=== PATIENT | female | born 1975 | race Caucasian/White ===

== ENCOUNTER 2017-06-23 23:28 | Emergency (ER) | payer OTHER ==
[~2017-06-23] VITALS: Ht 157.5 cm; Wt 55.0 kg
[2017-06-23 23:38] VITALS: Ht 157.5 cm; Wt 55.0 kg
--- NOTE | 2017-06-23 23:50 | ERD ---
ER Documentation Chief Complaint Chief Complaint told she took 8 tabs benadryl, now denies; states took 1 only tab HPI . The patient is a 42-year-old female, presenting to the ER because she told her hospital stay took 8 tablets of Benadryl because he was upset when she found out that her was cheating on her. She now told me that she only took one Benadryl to go to sleep and 1 shot of alcoholic beverages. She denies suicidal/homicidal ideation, visual/auditory hallucination. He denies headache , neck pain, chest pain, dyspnea, abdominal pain, vomiting, dysuria. She smokes , drinks, denies illicit drug Past medical history: None Past surgical history: Laparotomy for endometriosis ROS All systems reviewed and are negative except as per history of present illness. Medications Home Meds Reported Medications [id number] ( 19) 1 Each Tablet, 1 TAB PO DAILY, TAB 06/24/17 Allergies Allergies: Coded Allergies: bee venom protein (honey bee) (Verified Allergy, Severe, 06/23/17) Physical Exam Vitals Vital Signs Date Time Temp Pulse Resp B/P Pulse Ox O2 Delivery O2 Flow Rate FiO2 06/23/17 23:38 98.9 91 18 126/80 98 Physical Exam Const: No acute distress. Head: Atraumatic. Eyes: Normal Conjunctiva. ENT: Normal External Ears, Nose and Mouth. Neck: Full range of motion. No meningismus. Resp: Clear to auscultation bilaterally. Cardio: Regular rate and rhythm. Abd: Soft, non distended, normal bowel sounds, non tender. Skin: No petechiae or rashes. Back: No midline or flank tenderness. Ext: No cyanosis, or edema. Neur: Awake and alert. No focal deficit Psych: Depressed and anxious Result Diagram: 06/24/17 0004 06/24/17 0004 Results 24 hrs Laboratory Tests Test 06/23/17 23:50 06/24/17 00:04 Urine Color YELLOW Urine Clarity CLEAR Urine pH 5.0 Urine Specific [place] 1.011 Urine Ketones NEGATIVEmg/dL Urine Nitrite NEGATIVEmg/dL Urine Bilirubin NEGATIVEmg/dL Urine Urobilinogen NEGATIVEmg/dL Urine Leukocyte Esterase NEGATIVELeu/ul Urine Microscopic RBC 9/HPF Urine Microscopic WBC 5/HPF Urine Squamous Epithelial Cells FEW/HPF Urine Hemoglobin 1+mg/dL Urine Glucose NEGATIVEmg/dL Urine Total Protein NEGATIVEmg/dl Urine Opiates Screen Negative Urine Barbiturates Negative Urine Amphetamines Screen Negative Urine Benzodiazepines Screen Negative Urine Cocaine Screen Negative Urine Cannabinoids Positive White Blood Count 10.810^3/ul Red Blood Count 4.5710^6/ul Hemoglobin 14.1g/dl Hematocrit 40.8% Mean Corpuscular Volume 89.3fl Mean Corpuscular Hemoglobin 30.9pg Mean Corpuscular Hemoglobin Concent 34.6g/dl Red Cell Distribution Width 12.2% Platelet Count 21774^3/UL Mean Platelet Volume 9.9fl Neutrophils % 61.4% Lymphocytes % 33.4% Monocytes % 3.7% Eosinophils % 0.6% Basophils % 0.6% Nucleated Red Blood Cells % 0.0/100WBC Neutrophils # 6.610^3/ul Lymphocytes # 3.610^3/ul Monocytes # 0.410^3/ul Eosinophils # 0.110^3/ul Basophils # 0.110^3/ul Nucleated Red Blood Cells # 0.010^3/ul Sodium Level 143mmol/L Potassium Level 3.5mmol/L Chloride Level 111mmol/L Carbon Dioxide Level 19mmol/L Anion Gap 17 Blood Urea Nitrogen 10mg/dl Creatinine 0.63mg/dl Glucose Level 98mg/dl Calcium Level 8.8mg/dl Total Bilirubin 0.1mg/dl Direct Bilirubin 0.00mg/dl Indirect Bilirubin 0.1mg/dl Aspartate Amino Transf (AST/SGOT) 19IU/L Alanine Aminotransferase (ALT/SGPT) 32IU/L Alkaline Phosphatase 79IU/L Total Protein 7.5g/dl Albumin 4.9g/dl Globulin 2.60g/dl Albumin/Globulin Ratio 1.88 Salicylates Level < 1.0mg/dl Acetaminophen Level < 10.0ug/ml Ethyl Alcohol Level 101.0mg/dl [facility] MEDICAL MAKING DECISION: The patient is a 42-year-old female, presenting to the ER because of questionable suicidal ideation, alcohol abuse. The differential diagnoses considered include but are not limited to acute stress, depression, anxiety, psychoosis, drug-induced psychosis Consultation: She was evaluated by telepsychiatrist who put a 5150 hold Departure Diagnosis: Primary Impression: Intentional drug overdose Additional Impressions: Acute alcohol abuse Marijuana abuse Condition: Stable Comments I discussed the findings with the patient. I discussed the patient with the on- call telepsychiatrist who put her on 5150 hold at 1:35 AM The patient's blood pressure was elevated (>120/80) but appears stable without evidence of hypertension emergency or urgency. The patient was counseled about the risks of hypertension and urged to pursue outpatient monitoring and therapy within a week with their primary care physician. Disclaimer: Inadvertent spelling and grammatical errors are likely due to EHR/ dictation software use and do not reflect on the overall quality of patient care. Also, please note that the electronic time recorded on this note does not necessarily reflect the actual time of the patient encounter. BETHEL MCCLAIN MD Jun 23, 2017 23:50
[2017-06-24 00:17] LABS: BASOPHIL # 0.1 10^3/ul (0.0-0.1); BASOPHILS % 0.6 % (0.0-2.0); EOSINOPHILS # 0.1 10^3/ul (0.0-0.5); EOSINOPHILS % 0.6 % (0.0-7.0); HEMATOCRIT 40.8 % (37.0-47.0); HEMOGLOBIN 14.1 g/dl (12.0-16.0); LYMPHOCYTES # 3.6 10^3/ul (0.8-2.9); LYMPHOCYTES % 33.4 % (15.0-51.0); MEAN CORPUSCULAR HEMOGLOBIN 30.9 pg (29.0-33.0); MEAN CORPUSCULAR HGB CONC 34.6 g/dl (32.0-37.0); MEAN CORPUSCULAR VOLUME 89.3 fl (82.0-101.0); MEAN PLATELET VOLUME 9.9 fl (7.4-10.4); MONOCYTE # 0.4 10^3/ul (0.3-0.9); MONOCYTES % 3.7 % (0.0-11.0); NEUTROPHIL # 6.6 10^3/ul (1.6-7.5); NEUTROPHILS % 61.4 % (39.0-77.0); PLATELET COUNT 299 10^3/UL (140-415); RED BLOOD COUNT 4.57 10^6/ul (4.20-5.40); RED CELL DISTRIBUTION WIDTH 12.2 % (11.5-14.5); WHITE BLOOD COUNT 10.8 10^3/ul (4.8-10.8)
[2017-06-24 00:22] LABS: ADD UMIC YES; UR ASCORBIC ACID NEGATIVE (NEGATIVE); UR BILIRUBIN (Dip) NEGATIVE (NEGATIVE); UR BLOOD (Dip) 1+ mg/dL (NEGATIVE); UR CLARITY CLEAR (CLEAR); UR COLOR YELLOW (YELLOW); UR GLUCOSE (Dip) NEGATIVE (NEGATIVE); UR KETONES (Dip) NEGATIVE (NEGATIVE); UR LEUKOCYTE ESTERASE (Dip) NEGATIVE Leu/ul (NEGATIVE); UR NITRITE (Dip) NEGATIVE (NEGATIVE); UR RBC 9 /HPF (0-5); UR SPECIFIC GRAVITY (Dip) 1.011 (1.003-1.030); UR SQUAMOUS EPITHELIAL CELL FEW /HPF (FEW); UR TOTAL PROTEIN (Dip) NEGATIVE (NEGATIVE); UR UROBILINOGEN (Dip) NEGATIVE (NEGATIVE)
[2017-06-24 00:30] LABS: BARBITURATES Negative (NEGATIVE); BENZODIAZEPINES Negative (NEGATIVE); CANNABINOIDS Positive (NEGATIVE); COCAINE Negative (NEGATIVE); OPIATES Negative (NEGATIVE)
[2017-06-24 00:37] LABS: ALANINE AMINOTRANSFERASE 32 IU/L (13-69); ALBUMIN 4.9 g/dl (3.3-4.9); ALBUMIN/GLOBULIN RATIO 1.88; ALKALINE PHOSPHATASE 79 IU/L (42-121); ANION GAP 17 (8-16); ASPARTATE AMINO TRANSFERASE 19 IU/L (15-46); BILIRUBIN,INDIRECT 0.1 mg/dl (0-1.1); BILIRUBIN,TOTAL 0.1 mg/dl (0.2-1.3); BLOOD UREA NITROGEN 10 mg/dl (7-20); CALCIUM 8.8 mg/dl (8.4-10.2); CARBON DIOXIDE 19 mmol/L (21-31); CHLORIDE 111 mmol/L (97-110); CREATININE 0.63 mg/dl (0.44-1.00); GLUCOSE 98 mg/dl (70-220); POTASSIUM 3.5 mmol/L (3.5-5.1); SODIUM 143 mmol/L (135-144); TOTAL PROTEIN 7.5 g/dl (6.1-8.1)
[2017-06-24 00:39] LABS: ACETAMINOPHEN < 10.0 ug/ml (10.0-30.0); SALICYLATE < 1.0 mg/dl (5.0-30.0)
[2017-06-24] MEDS ORDERED: PNV11TAB PO (01:26)
--- NOTE | 2017-06-24 01:39 | PSY ---
Date/Time of Note Date/Time of Note DATE: 06/24/17 TIME: 01:38 Psychiatric Subjective Eval Consent Pt consented to telemedicine: Yes Subjective Evaluation Patient location: emergency Chief Complaint: told she took 8 tabs benadryl, now denies; states took 1 only tab Reason for consult: SUICIDAL IDEATION Hospitalization: no Allergies: Coded Allergies: bee venom protein (honey bee) (Verified Allergy, Severe, 06/23/17) Social History Marital status: Psychiatric Objective Eval Mental Status Examination: Laboratory Results Laboratory Tests Test 06/23/17 23:50 06/24/17 00:04 Urine Color YELLOW Urine Clarity CLEAR Urine pH 5.0 Urine Specific [place] 1.011 Urine Ketones NEGATIVEmg/dL Urine Nitrite NEGATIVEmg/dL Urine Bilirubin NEGATIVEmg/dL Urine Urobilinogen NEGATIVEmg/dL Urine Leukocyte Esterase NEGATIVELeu/ul Urine Microscopic RBC 9/HPF Urine Microscopic WBC 5/HPF Urine Squamous Epithelial Cells FEW/HPF Urine Hemoglobin 1+mg/dL Urine Glucose NEGATIVEmg/dL Urine Total Protein NEGATIVEmg/dl Urine Opiates Screen Negative Urine Barbiturates Negative Urine Amphetamines Screen Negative Urine Benzodiazepines Screen Negative Urine Cocaine Screen Negative Urine Cannabinoids Positive White Blood Count 10.810^3/ul Red Blood Count 4.5710^6/ul Hemoglobin 14.1g/dl Hematocrit 40.8% Mean Corpuscular Volume 89.3fl Mean Corpuscular Hemoglobin 30.9pg Mean Corpuscular Hemoglobin Concent 34.6g/dl Red Cell Distribution Width 12.2% Platelet Count 81024^3/UL Mean Platelet Volume 9.9fl Neutrophils % 61.4% Lymphocytes % 33.4% Monocytes % 3.7% Eosinophils % 0.6% Basophils % 0.6% Nucleated Red Blood Cells % 0.0/100WBC Neutrophils # 6.610^3/ul Lymphocytes # 3.610^3/ul Monocytes # 0.410^3/ul Eosinophils # 0.110^3/ul Basophils # 0.110^3/ul Nucleated Red Blood Cells # 0.010^3/ul Sodium Level 143mmol/L Potassium Level 3.5mmol/L Chloride Level 111mmol/L Carbon Dioxide Level 19mmol/L Anion Gap 17 Blood Urea Nitrogen 10mg/dl Creatinine 0.63mg/dl Glucose Level 98mg/dl Calcium Level 8.8mg/dl Total Bilirubin 0.1mg/dl Direct Bilirubin 0.00mg/dl Indirect Bilirubin 0.1mg/dl Aspartate Amino Transf (AST/SGOT) 19IU/L Alanine Aminotransferase (ALT/SGPT) 32IU/L Alkaline Phosphatase 79IU/L Total Protein 7.5g/dl Albumin 4.9g/dl Globulin 2.60g/dl Albumin/Globulin Ratio 1.88 Salicylates Level < 1.0mg/dl Acetaminophen Level < 10.0ug/ml Ethyl Alcohol Level 101.0mg/dl Assessment Additional comments: IDENTIFYING INFORMATION: 42 year old Female patient who is currently located at the hospital and for whom psychiatric consultation was requested. SOURCES OF INFORMATION: The patient who appears to be somewhat reliable and the medical records; the nursing staff. Ex-, Arlene, x2 but it went straight to [facility]; [phone], he appears to be reliable. CHIEF COMPLAINT: "I had a fight with my ". HISTORY OF PRESENT ILLNESS: The patient was interviewed via telemedicine in the presence of and under the supervision of nursing staff of the hospital. The consent to conducting this interview via telemedicine was obtained by the nursing staff at the hospital. WILMER Khan reports that the patient reported that she was threatening to take 8 tablets of Benadryl to hurt herself. Reported that she only said that because she wanted to get his attention. Patient was not sleepy at the ER. Patient denied having SI. Is not on a hold. According to the emergency room physician's note, the patient told her that she took 8 tablets of Benadryl. She reported that she only took 1 tablet to the emergency room staff. The patient reports that she told her ex- that she took some sleeping pills to grab his attention. Reports that they got a divorce in February but they have continued being together even after that. She reports that he has had various girlfriends because he is from [facility] and she found out that he was cheating on her. She denies being persistently depressed, having anhedonia, insomnia, fatigue, low appetite, SI, HI, AH, VH, delusions. He reports that she took the pills in front of her daughter while drank and after an argument with him. She told his mom that she was going to kill herself and she needed to bring her daughter to her mother in law to take care of her since she was going to kill herself. He reports that the patient took an OD 10 years ago when she was upset. She did not seek medical help at that time. The patient reports drinking occasionally. Usually drinks in moderation a few times per year. Last drink was tonight. The patient denies having a history of alcohol withdrawal-induced tremors, seizures, delirium tremens, visual hallucinations, and denies having alcohol withdrawal-related hospitalizations. The patient denies using alcohol heavily or regularly. The patient reports using MJ occasionally. Last use was 2 days ago. The patient denies using any other substances. In terms of past psychiatric history, the patient reports having a history of no past psychiatric hospitalizations, contacts, meds trials. The patient reports having a history of no past suicide attempts or cutting herself. The patient denies that she ever attempted to harm herself, however the patient reports that the patient took an overdose 10 years ago. Past medication trials : none. The patient denies ever having a history of AH, delusions, persistent or serious depression or anhedonia, manic or hypomanic episodes. PAST MEDICAL HISTORY: none. CURRENT MEDICATIONS: Benadryl OTC 25 mg po qhs prn. ALLERGIES TO MEDICATIONS: bees. 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 LABORATORY TESTS: CMP with chloride 111, CBC WNL, UDS positive for cannabinoids, alcohol was 101 at midnight. FAMILY HISTORY: Noncontributory for major depressive disorder, bipolar disorder , schizophrenia, completed suicides. REVIEW OF SYSTEMS: Constitutional (e.g., fever, weight loss): negative; Eyes, Ears, Nose, Mouth, Throat: negative; Cardiovascular: negative; Respiratory: negative; Gastrointestinal: negative; Genitourinary: negative; Musculoskeletal: negative; Integumentary (skin and/or breast): negative; Neurological: negative; Psychiatric: as per HPI; Endocrine: negative; Hematologic/Lymphatic: negative; Allergic/Immunologic: negative. MENTAL STATUS EXAMINATION: General Appearance and Behavior: Calm, cooperative with the interview, pleasant with the current interviewer, makes good eye contact, fairly groomed, no abnormal movements noted. Speech: Regular rate, regular rhythm, normal latency, normal volume, normal amount. Flow of thought: sequential, logical, goal-directed. Content of thought: no auditory hallucinations, no visual hallucinations, no delusions, positive for suicidal ideation; no homicidal ideation. Mood: "fine". Affect: somewhat dysthymic, reactive. Attention: normal based on the interview. Insight: fair. Judgment: poor. Memory: normal based on the interview. Sensorium: alert and oriented to person, place and date. ASSESSMENT: The patient's presentation and history are consistent with the diagnosis of unspecified depressive disorder, alcohol use disorder. The patient presents after a reported suicide attempt in the context of an argument and alcohol intoxication. The patient did make some statements suggesting that she was actually considering suicide, including wanting to make sure that her daughter was taken care of by my grandmother. The and ex- is concerned regarding the safety of his ex-. Dixon I: unspecified depressive disorder, alcohol use disorder. Dixon II: Deferred. Dixon III: see PMH. Dixon IV: social stressors. Dixon V: GAF: 10. PLAN: - Medication management: Would recommend starting alcohol withdrawal protocol per JOANIEWA. Would also consider administering thiamine, folic acid, multivitamin. Would start haloperidol 5 mg IM PRN severe agitation q4 hours. Would start diphenhydramine 50 mg IM PRN severe agitation q4 hours. Would start lorazepam 2 mg IM PRN severe agitation q4 hours Will defer to the inpatient psychiatry team for other medication changes. - Labs: No other laboratory tests are needed at this time. - Psychotherapy: Provided supportive psychotherapy and psychoeducation. - Disposition: Would recommend involuntary admission to the inpatient psychiatric unit given the severity of the patient's psychiatric condition and the fact that the patient is an imminent danger to self and/or others so long as the patient has been cleared medically for admission to psychiatry. Inpatient psychiatric admission is at this time the least restrictive environment where the patient can receive the psychiatric care that is needed. Would place on suicide precautions. The patient fulfills criteria for being placed on an involuntary hold for being a danger to self due to a psychiatric disorder. Discussed about the above plan with Dr. Veras. VAZQUEZ HAYDEN MD Jun 24, 2017 01:39
[2017-06-24 15:23] VITALS: BP 115/40; PULSE 66; RESP 16; TEMP 98.3
== END 2017-06-24 18:34 ==
LOC: E/R 23:28
DX: T45.0X2A Poisoning by antiallergic and antiemetic drugs, intentional self-harm, initial encounter (principal); F10.10 Alcohol abuse, uncomplicated; F12.10 Cannabis abuse, uncomplicated
CPT/HCPCS: 36415; 80053; 80306; 80307; 81001; 85025; Z7502